=== PATIENT | female | born 1960 | race Two or more races ===

== ENCOUNTER 2021-12-09 10:17 | Emergency (ER) | payer OTHER ==
[~2021-12-09] VITALS: Ht 165.1 cm; Wt 63.5 kg
[~2021-12-09 10:17] MED LIST: AMBIEN5 MG PO
== END 2021-12-09 15:21 | disposition left against medical advice (07) ==
LOC: ER 10:17
DX: S90.01XA Contusion of right ankle, initial encounter (principal); S80.01XA Contusion of right knee, initial encounter; S90.02XA Contusion of left ankle, initial encounter; S00.93XA Contusion of unspecified part of head, initial encounter; W18.30XA Fall on same level, unspecified, initial encounter; Y93.01 Activity, walking, marching and hiking; Y92.481 Parking lot as the place of occurrence of the external cause; Y99.9 Unspecified external cause status; M25.511 Pain in right shoulder

== ENCOUNTER 2022-02-28 11:03 | Outpatient (CLI) | payer OTHER | END 2022-02-28 11:14 | disposition home or self-care (01) | LOC: MAMO-SONO 11:03 → NUCLEAR 13:00 | PROVIDERS: ATTEND Internal Medicine | DX: Z12.31 Encounter for screening mammogram for malignant neoplasm of breast (principal); G62.9 Polyneuropathy, unspecified; M89.9 Disorder of bone, unspecified; E78.9 Disorder of lipoprotein metabolism, unspecified; E55.9 Vitamin D deficiency, unspecified; E11.51 Type 2 diabetes mellitus with diabetic peripheral angiopathy without gangrene ==

== ENCOUNTER → 2022-02-28 | Outpatient (CLI) | payer OTHER | END | disposition home or self-care (01) | LOC: NUCLEAR 13:41 | PROVIDERS: ATTEND Internal Medicine | DX: M89.9 Disorder of bone, unspecified (principal); I10 Essential (primary) hypertension; M54.59 Other low back pain; E03.9 Hypothyroidism, unspecified; E78.9 Disorder of lipoprotein metabolism, unspecified; E55.9 Vitamin D deficiency, unspecified; E11.51 Type 2 diabetes mellitus with diabetic peripheral angiopathy without gangrene; E66.8 Other obesity; G62.9 Polyneuropathy, unspecified; Z12.31 Encounter for screening mammogram for malignant neoplasm of breast ==

== ENCOUNTER 2022-06-15 16:23 | Outpatient (CLI) | payer OTHER | END 2022-06-15 16:26 | disposition home or self-care (01) | LOC: RAD 16:23 | PROVIDERS: ATTEND Physical Medicine & Rehabilitation | DX: M25.552 Pain in left hip (principal) ==

== ENCOUNTER 2022-08-21 09:58 | Outpatient (CLI) | payer OTHER | END 2022-08-21 10:03 | disposition home or self-care (01) | LOC: SONOGRAMA 09:58 | PROVIDERS: ATTEND Internal Medicine Gastroenterology | DX: K82.9 Disease of gallbladder, unspecified (principal) ==

== ENCOUNTER 2022-10-02 08:35 | Outpatient (CLI) | payer OTHER | END 2022-10-02 08:36 | disposition home or self-care (01) | LOC: NUCLEAR 08:35 | PROVIDERS: ATTEND Internal Medicine Gastroenterology | DX: K81.1 Chronic cholecystitis (principal) | CPT/HCPCS: 78227; A9537; J2805 ==

== ENCOUNTER 2022-10-02 12:19 | Outpatient (CLI) | payer OTHER | END 2022-10-02 12:22 | disposition home or self-care (01) | LOC: MRI 12:19 | PROVIDERS: ATTEND Physical Medicine & Rehabilitation | DX: M25.522 Pain in left elbow (principal) | CPT/HCPCS: 73721 ==

== ENCOUNTER 2022-12-13 13:40 | Outpatient (CLI) | payer OTHER | END 2022-12-13 13:48 | disposition home or self-care (01) | LOC: RAD 13:40 | PROVIDERS: ATTEND Physical Medicine & Rehabilitation | DX: M25.561 Pain in right knee (principal) ==

== ENCOUNTER 2023-02-28 14:23 | Outpatient (CLI) | payer OTHER | END 2023-02-28 14:33 | disposition home or self-care (01) | LOC: RAD 14:23 | DX: M54.50 Low back pain, unspecified (principal) ==

== ENCOUNTER 2023-10-02 12:56 | Outpatient (CLI) | payer OTHER | END 2023-10-02 13:08 | disposition home or self-care (01) | LOC: RAD 12:56 | PROVIDERS: ATTEND Physical Medicine & Rehabilitation | DX: M16.12 Unilateral primary osteoarthritis, left hip (principal) ==

== ENCOUNTER 2023-12-12 14:43 | Outpatient (CLI) | payer OTHER | END 2023-12-12 14:48 | disposition home or self-care (01) | LOC: RAD 14:43 | PROVIDERS: ATTEND Physical Medicine & Rehabilitation | DX: M54.50 Low back pain, unspecified (principal); M17.12 Unilateral primary osteoarthritis, left knee; M25.511 Pain in right shoulder ==

== ENCOUNTER 2023-12-31 09:49 | Outpatient (CLI) | payer OTHER | END 2023-12-31 09:55 | disposition home or self-care (01) | LOC: SONOGRAMA 09:49 | PROVIDERS: ATTEND Physical Medicine & Rehabilitation | DX: M25.511 Pain in right shoulder (principal) ==

== ENCOUNTER 2024-07-09 10:45 | Outpatient (CLI) | payer OTHER | END 2024-07-09 10:51 | disposition home or self-care (01) | LOC: MRI 10:45 | PROVIDERS: ATTEND Physical Medicine & Rehabilitation | DX: M16.12 Unilateral primary osteoarthritis, left hip (principal); M25.512 Pain in left shoulder | CPT/HCPCS: 73721 ==

== ENCOUNTER 2024-08-11 13:33 | Outpatient (CLI) | payer OTHER | END 2024-08-11 13:40 | disposition home or self-care (01) | LOC: RAD 13:33 | PROVIDERS: ATTEND Obstetrics & Gynecology Obstetrics | DX: M99.01 Segmental and somatic dysfunction of cervical region (principal); M99.02 Segmental and somatic dysfunction of thoracic region; M99.03 Segmental and somatic dysfunction of lumbar region; M99.04 Segmental and somatic dysfunction of sacral region; M99.05 Segmental and somatic dysfunction of pelvic region ==

== ENCOUNTER 2024-08-27 12:45 | Outpatient (CLI) | payer OTHER | END 2024-08-27 12:53 | disposition home or self-care (01) | LOC: RAD 12:45 | PROVIDERS: ATTEND Orthopaedic Surgery | DX: M25.552 Pain in left hip (principal); M54.50 Low back pain, unspecified ==

== ENCOUNTER 2025-01-28 10:21 | Outpatient (CLI) | payer OTHER | END 2025-01-28 10:56 | disposition home or self-care (01) | LOC: MAMO-SONO 10:21 | DX: N60.39 Fibrosclerosis of unspecified breast (principal); Z12.39 Encounter for other screening for malignant neoplasm of breast; Z12.31 Encounter for screening mammogram for malignant neoplasm of breast ==

== ENCOUNTER 2025-03-15 13:29 | Outpatient (CLI) | payer OTHER | END 2025-03-15 13:31 | disposition home or self-care (01) | LOC: SONOGRAMA 13:29 | PROVIDERS: ATTEND Specialist | DX: N18.2 Chronic kidney disease, stage 2 (mild) (principal) ==

== ENCOUNTER 2025-04-01 13:38 | Outpatient (CLI) | payer OTHER | END 2025-04-01 13:44 | disposition home or self-care (01) | LOC: RAD 13:38 | PROVIDERS: ATTEND Anesthesiology | DX: M16.12 Unilateral primary osteoarthritis, left hip (principal); M16.11 Unilateral primary osteoarthritis, right hip; M25.551 Pain in right hip; M25.552 Pain in left hip ==

== ENCOUNTER → 2025-06-21 09:10 | Outpatient (CLI) | payer OTHER ==
[2025-06-21 10:08] LABS: BASO % 0.8 % (0.1-1.2); EOS # 0.22 (0.04-0.54); EOS % 3.3 % (0.7-7.0); LYMPH # 2.11 (1.18-3.74); LYMPH % 31.8 % (19.3-53.1); MEAN PLATELET VOLUME 10.10 fl (9.4-12.4); MONO # 0.51 (0.24-0.82); MONO % 7.7 % (4.7-12.5); NEUT # 3.72 (1.56-6.13); NEUT % 55.9 % (34.0-71.1); RED CELL DISTRIBUTION WIDTH 13.6 % (11.6-14.4)
[2025-06-21 10:25] LABS: URINE APPEARANCE Clear; URINE BILIRRUBIN Negative (NEGATIVE); URINE BLOOD Negative; URINE COLOR Yellow; URINE GLUCOSE Negative (NEGATIVE); URINE KETONE Negative (NEGATIVE); URINE LEUKOCYTE Negative; URINE NITRATE Negative; URINE PROTEIN Negative (NEGATIVE); URINE UROBILINOGEN 0.2 E.U./dl
[2025-06-21 10:30] LABS: URINE BACTERIA 8.3 uL (0.0-1933); URINE EPITHELIAL CELLS 2.1 uL (0.0-38.8); URINE RBC 3.2 uL (0.0-20.8)
[2025-06-21 11:01] LABS: URINE CAST 0.00 uL (0.0-1.40); URINE WBC 1.3 uL (0.0-23.2)
[2025-06-21 12:03] LABS: CREATININE URINE RANDOM 113.0 MG/DL (30-125)
[2025-06-21 12:05] LABS: BUN CREA RATIO 20.0 (7.0-25.0); CHOL HDL RATIO 5.1 (0-5.0); CREATININE SERUM 0.71 mg/dL (0.55-1.02); GFR 82.62; GLUCOSE FASTING 84.0 mg/dL (65-100); HDL 49.0 mg/dl (40-60); LDL 168.0 mg/dl (0-130); OSMOLALITY SERUM 285.0 MOSM/KG (275-295); VLDL 32.0 (0-39)
[2025-06-21 12:06] LABS: ALT/SGPT 35.0 U/L (12-78); AST/SGOT 12.0 U/L (15-37); BILIRUBIN TOTAL 0.48 mg/dL (0.3-1.2); GLOBULINA 3.6 G/DL (2.4-3.5); TSH 3.63 uIU/mL (0.358-3.74)
[2025-06-22 07:07] LABS: HOMOCYSTEINE 15.8 umol/L (0.0-17.2)
== END | disposition home or self-care (01) ==
LOC: LAB 09:10
PROVIDERS: ATTEND Specialist
DX: E03.9 Hypothyroidism, unspecified (principal); E11.21 Type 2 diabetes mellitus with diabetic nephropathy; N39.9 Disorder of urinary system, unspecified; E78.2 Mixed hyperlipidemia; D64.9 Anemia, unspecified; E11.65 Type 2 diabetes mellitus with hyperglycemia; D68.2 Hereditary deficiency of other clotting factors; D68.61 Antiphospholipid syndrome

== ENCOUNTER 2025-07-13 09:29 | Outpatient (CLI) | payer OTHER | END 2025-07-13 09:34 | disposition home or self-care (01) | LOC: TOM 09:29 | PROVIDERS: ATTEND Specialist | DX: I63.9 Cerebral infarction, unspecified (principal) ==

== ENCOUNTER 2025-09-28 13:27 | Outpatient (CLI) | payer OTHER | END 2025-09-28 13:31 | disposition home or self-care (01) | LOC: RAD 13:27 | PROVIDERS: ATTEND Orthopaedic Surgery Orthopaedic Surgery of the Spine | DX: M16.0 Bilateral primary osteoarthritis of hip (principal); M48.061 Spinal stenosis, lumbar region without neurogenic claudication ==